=== PATIENT | female | born 1995 | race Caucasian/White ===

== ENCOUNTER → 2022-09-30 | Outpatient (CLI) | payer MEDICAID, SELFPAY ==
[2022-09-30 12:36] LABS: Erythrocyte Sedimentation Rate 22 mm/hr (0-30)
[2022-09-30 12:37] LABS: Absolute Lymphocyte Count 2.36 X10^3/uL (0.83-4.51); Absolute Neutrophil Count 2.4 X10^3/uL (2.0-7.7); Basophil# 0.01 X10^3/uL; Basophil% 0.2 % (0-1); Eosinophil# 0.15 X10^3/uL; Eosinophils% 2.8 % (0-5); Hematocrit 40.1 % (37-47); Hemoglobin 12.9 g/dL (12.0-15.0); Lymphocyte # 2.36 X10^3/ul (0.83-4.51); Lymphocyte % 43.5 % (19-41); Mean Corp Hgb Conc 32.2 g/dL (32-36); Mean Corpuscular Hgb 28.2 pg (27.0-32.0); Mean Corpuscular Volume 87.7 fL (81-99); Mean Platelet Vol. 9.1 fl (6.2-12.0); Monocyte# 0.46 X10^3/uL; Monocyte% 8.5 % (0-10); NRBC Flagged by Analyzer 0 % (0-5); Neutrophil # 2.43 X10^3/uL (2.7-7.7); Neutrophil % 44.6 % (47-70); Platelet Count 279 K/mm3 (150-450); RBC Distribution Width CV 14.9 % (11.6-14.6); RBC Distribution Width SD 47.8 fl (35.1-43.9); Red Blood Count 4.57 M/mm3 (4.2-5.4); White Blood Count 5.4 K/mm3 (4.4-11.0)
[2022-09-30 13:20] LABS: ALB/GLOB Ratio 0.9 RATIO (0.9-2.4); AST(SGOT) 14 U/L (15-37); Alanine Aminotransfer ALT/SGPT 20 U/L (13-56); Albumin, Serum 3.6 g/dL (3.2-5.0); Alkaline Phosphatase 80 U/L (45-117); Anion Gap 7 (5-15); BUN 11 mg/dL (7-18); BUN/Creat Ratio 13.2 RATIO (10-20); Chloride 109 mmol/L (98-107); Creatinine, Serum 0.83 mg/dL (0.55-1.02); EST Glomerular Filtration Rate 88 mL/min (>60); Est Glom Filt Rate - Afr Amer 106 mL/min (>60); Glucose 86 mg/dL (74-106); Lipase 35 U/L (13-75); Potassium 3.6 mmol/L (3.5-5.1); Protein, Total 7.6 g/dL (6.4-8.2); Sodium Level 139 mmol/L (136-145)
[2022-10-03 15:07] LABS: Endomysial Antibody IgA Negative (Negative); Immunoglobulin A 230 mg/dL (87-352); t-Transglutaminase IgA <2 U/mL (0-3)
[2022-10-03 16:09] LABS: Anti-Centromere B Ab <0.2 AI (0.0-0.9); Anti-Chromatin <0.2 AI (0.0-0.9); Anti-Jo <0.2 AI (0.0-0.9); Anti-Scleroderma-70 AB <0.2 AI (0.0-0.9); Anti-dsDNA Ab <1 IU/mL (0-9); RNP Ab <0.2 AI (0.0-0.9); SJOGREN'S Anti-SS-A test < 0.2 AI (0.0-0.9); SJOGREN'S Anti-SS-B test < 0.2 AI (0.0-0.9); Smith Ab <0.2 AI (0.0-0.9)
[2022-10-06 19:07] LABS: Immunoglobulin A 219 mg/dL (87-352); Immunoglobulin E 241 IU/mL (6-495); Immunoglobulin G 1129 mg/dL (586-1602); Immunoglobulin M 153 mg/dL (26-217)
== END | disposition home or self-care (01) ==
PROVIDERS: Referring Provider Nurse Practitioner Adult Health; Visit Provider Nurse Practitioner Adult Health
DX: R19.7 Diarrhea, unspecified (principal); R11.10 Vomiting, unspecified; R10.9 Unspecified abdominal pain
CPT/HCPCS: 36415; 80053; 82784; 82785; 83516; 83690; 85025; 85652; 86140; 86225; 86235; 86255

== ENCOUNTER → 2022-10-14 | Outpatient (CLI) | payer MEDICAID, SELFPAY ==
--- NOTE | 2022-10-14 07:23 | US_ITS ---
STUDY: ABDOMINAL ULTRASOUND - RIGHT UPPER QUADRANT REASON FOR VISIT: Female, 27 years old episodic vomit/diarrhea/abd pain -- RUQ TECHNIQUE: Ultrasound evaluation of the right upper quadrant was performed with real-time and static hernandez-scale imaging. TECHNICAL QUALITY: Adequate. COMPARISON: None. FINDINGS: Liver: The liver is enlarged and measures 18.8 cm. There is increased echogenicity consistent with fatty infiltration. The bile ducts are within normal limits. There is hepatic color flow. The direction of portal flow is hepatopetal. There is no demonstrated mass lesion. Gallbladder: Normal distended gallbladder. The gallbladder wall measures 3.0 mm. There is a negative sonographic Mcallister''s sign. There is no pericholecystic fluid. There are no gallstones. Common Bile Duct (C.B.D.): The common bile duct measures 2.0 mm. Pancreas: Normal size of the head, body and tail of the pancreas. There is normal echogenicity of the pancreas. There is no demonstrated pancreatic mass or cyst. Right Kidney: Normal size of the right kidney. The right kidney measures 10.6 cm x 4 cm x 4.7 cm. Normal renal cortex. The right cortex measures 1.3 cm. There is no demonstrated renal mass or cyst. There is no right hydronephrosis. US/Abdomen Limited IMPRESSION: Hepatomegaly and fatty infiltration of the liver. Electronically Signed: Zurdo Carney MD at 15:19 EDT ,
== END | disposition home or self-care (01) ==
LOC: US 07:19
PROVIDERS: Referring Provider Nurse Practitioner Adult Health; Visit Provider Nurse Practitioner Adult Health
DX: R10.9 Unspecified abdominal pain (principal); R11.10 Vomiting, unspecified; R19.7 Diarrhea, unspecified
CPT/HCPCS: 76705

== ENCOUNTER → 2022-11-04 | Outpatient (CLI) | payer MEDICAID, SELFPAY ==
[2022-11-04 17:20] LABS: Prothrombin Time (Protime)PT. 13.3 SECONDS (11.7-14.9)
[2022-11-04 17:41] LABS: Hemoglobin A1c 4.9 % (3.8-5.6)
[2022-11-04 17:44] LABS: Ferritin 6 ng/mL (8-252); LDH 178 U/L (84-246)
[2022-11-04 18:15] LABS: HIV - WCH Non-Reactive (Nonreactive)
[2022-11-07 14:08] LABS: Anti-Mitochondrial AB 35.9 Units (0.0-20.0)
[2022-11-08 17:07] LABS: Calprotectin, Stool 32 ug/g (0-120)
[2022-11-10 03:07] LABS: AFP, Tumor Marker < 1.8 ng/mL (0.0-4.7); Angiotensin Convert Enzyme 46 U/L (14-82); Anti-Smooth Muscle ABS 5 Units (0-19); Ceruloplasmin 28.3 mg/dL (19.0-39.0); Copper, Serum or Plasma 120 ug/dL (80-158); Cytoplasmic Ab (C-ANCA) <1:20 titer (Neg:<1:20); HEPATITIS B SURFACE AG Negative (Negative); Haptoglobin 127 mg/dL (33-278); Hep C Antibodies Non Reactive (Non Reactive); Hepatitis A IgM Antibody Negative (Negative); Hepatitis B Core AB IgM Negative (Negative); Perinuclear Ab (P-ANCA) <1:20 titer (Neg:<1:20)
== END | disposition home or self-care (01) ==
LOC: LABSPEC 15:13
PROVIDERS: Nurse Practitioner Adult Health; Referring Provider Internal Medicine Gastroenterology; Visit Provider Internal Medicine Gastroenterology
DX: K76.0 Fatty (change of) liver, not elsewhere classified (principal); R19.7 Diarrhea, unspecified; R11.10 Vomiting, unspecified; R10.9 Unspecified abdominal pain; K58.9 Irritable bowel syndrome, unspecified
CPT/HCPCS: 36415; 80074; 82105; 82140; 82164; 82390; 82525; 82728; 83010; 83036; 83516; 83615; 83630; 83993; 85610; 86256; 86703

== ENCOUNTER → 2022-11-11 | Outpatient (CLI) | payer MEDICAID, SELFPAY ==
--- NOTE | 2022-11-11 07:29 | US_ITS ---
STUDY: ABDOMINAL ULTRASOUND - ELASTOGRAPHY REASON FOR VISIT: Female, 27 years old. Fatty infiltration of the liver. TECHNIQUE: Liver stiffness measurements were obtained on a [employer] RS 85 ultrasound machine using a CA 1-7 probe following the SRU guidelines. 3 measurements were obtained using a 2-D-SWE method. TheIQR/M was 17% suggesting a quality data set. TECHNICAL QUALITY: Adequate. COMPARISON: Comparison is made with prior study dated October 14, 2022. FINDINGS: Liver: Fatty infiltration of the liver. Median liver stiffness measured 6.4 kPa. Abdomen: There is no demonstrated mass lesion. US/Elastography Parenchyma/Organ IMPRESSION: Liver stiffness measures 6.4 kPa compatible with F2-F3 (Mild to moderate liver fibrosis) Metavir score. Electronically Signed: Zurdo Carney MD at 9:20 EDT ,
== END | disposition home or self-care (01) ==
LOC: US 07:26
PROVIDERS: Referring Provider Internal Medicine Gastroenterology; Visit Provider Internal Medicine Gastroenterology
DX: K76.0 Fatty (change of) liver, not elsewhere classified (principal)
CPT/HCPCS: 76981

== ENCOUNTER → 2022-12-02 | Outpatient (CLI) | payer MEDICAID, SELFPAY ==
[2022-12-02] VITALS (7 sets, daily range): BP systolic 101–134; BP diastolic 49–74; PULSE 47–69; RESP 17–24; TEMP 36.9; O2SAT 96–100; BMI 38.2
--- NOTE | 2022-12-02 | LIVB_PTH ---
PATIENT: HERRERA RANDALL LOC: CT U#:[id number] AGE/SX: 27/F ROOM: RE12/02/[address]: Dr. Pepe Juares DO : 1995 BED: DIS: 12/02/2022 SPEC #: [id number] RECD: 12/02/22 09:49 STATUS: MARY REGabe #: [id number] GABRIEL: 12/02/22 00:[address]: Pepe Juares DEPT: SURGICAL PATHOLOGY RECD BY: Kristin Pérez ENTERED: 12/02/22 11:00 SP TYPE: LIVER BX OTHR DR: Dr. Zurdo Carney MD Tissues: Liver, NOS Procedures: PAS with Diastase (control) Trichrome (control) Special Stain Group II PAS Stain (control) Surgery Specimen Level V Retic (control) Iron Stain (control) HEADER OPERATION: Liver biopsy PRE-OP DIAGNOSIS: Fatty liver TISSUE SUBMITTED: Right lobe liver 18-gauge x3 MICROSCOPIC DIAGNOSIS Right lobe liver, core biopsy: Liver parenchymal tissue with focal minimal macrovesicular steatosis and focal minimal portal chronic inflammation. See microscopic description and comment. SJ:barb 12/05/2022 COMMENT Correlation with clinical, laboratory and radiologic findings and appropriate follow up are necessary. Case has been reviewed in consultation with Dr. Lama who concurs with the above diagnosis. IDC:CHRISTINA MICROSCOPIC DESCRIPTION Slides are reviewed. The specimen shows liver parenchymal tissue with preserved lobular architecture. Hepatocytes are essentially unremarkable. Significant lobular inflammation is not seen. Portal area shows minimal chronic inflammation. Significant bile duct destruction or inflammation is not seen. Interface inflammation is also not present. Iron stain shows absent iron. Reticulin stain shows preserved lobular architecture. Trichrome stain does not show significant increased portal or periportal fibrosis. PAS stain with and without diastase does not reveal any abnormal accumulation of protein. All stains are performed with appropriate matched controls. GROSS DESCRIPTION Received in fixative is one container labeled with the patient's name and designated liver biopsy. The specimen consists of multiple elongated fragments of flower soft tissue that in aggregate measure 2.0 x 0.5 x 0.1 cm. The specimen is totally submitted in one cassette. / HAROON:barb 12/04/2022 TC:3 CPT: 48228, 05980 x5
[2022-12-02 07:50] LABS: Platelet Count 240 K/mm3 (150-450)
--- NOTE | 2022-12-02 07:53 | CT_ITS ---
PROCEDURE: CT DIRECTED CORE LIVER BIOPSY INDICATION: Female, 27 years old. Fatty liver PHYSICIAN: Dr. Floresita Sanchez CONSENT: Written informed consent was obtained having explained the risks, benefits and alternatives in detail with the patient who accepted the risks and agreed to proceed. Laboratory review and clinical assessment was performed. CONSCIOUS SEDATION PROTOCOL: The Drugs used were: 3 mg Versed, IV., and 75 mcg Fentanyl, IV. The sedation time was: 20 minutes. Conscious sedation was started at 9:05 AM and terminated on 9:25 AM. The conscious sedation protocol was independently monitored. RADIATION DOSAGE (If Supplied By Facility): CTDIvol = ( 19.5 ) mGy, DLP = ( 426.97 ) mGy Individualized dose optimization techniques were used for this CT. TECHNIQUE: Using CT image guidance with image documentation, a suitable location in the right lobe of the liver was identified. Using an anterior approach, puncture of the liver was uneventful with an 18-gauge core needle system. 3, 18-gauge core samples were obtained, and submitted in formalin to the pathologist for further assessment. Followup CT scan revealed no distinct sequelae. CT/Biopsy/Inj or Needle Placement IMPRESSION: 1. CT directed core needle biopsy of the liver, using CT image guidance with image documentation as described. 2. Conscious Sedation protocol utilized with independent monitoring. Electronically Signed: Zurdo Carney MD at 10:48 EDT ,
[2022-12-02 08:02] LABS: International Normalized Ratio 1.1; Partial Thromboplast Time 29.8 Seconds (24.1-36.2); Prothrombin Time (Protime)PT. 14.1 SECONDS (11.7-14.9)
[2022-12-02] MEDS: Midazolam 2 MG/2 ML Syringe IV ×3 (09:05→09:45)
[2022-12-02] MEDS: fentaNYL 100 MCG/2 ML Ampul IV ×3 (09:05→09:45)
[2022-12-02] MEDS: Lidocaine 2% (20 ml mdv) 20 ML Vial INFILT (09:15)
== END | disposition home or self-care (01) ==
PROVIDERS: Referring Provider Internal Medicine Gastroenterology; Visit Provider Internal Medicine Gastroenterology
DX: K76.0 Fatty (change of) liver, not elsewhere classified (principal)
CPT/HCPCS: 47000; 36415; 77012; 85049; 85610; 85730; 88307; 88313; 99156; J7050; A4216

== ENCOUNTER 2023-01-20 05:31 | Day surgery (SDC) | payer MEDICAID, SELFPAY ==
[2023-01-20] VITALS (7 sets, daily range): BP systolic 87–107; BP diastolic 48–81; PULSE 63–77; RESP 16–18; TEMP 36.2–36.6; O2SAT 98–100; BMI 37.4
[2023-01-20] MEDS: Lactated Ringers 1,000 ML 15 ML IV (06:07)
--- NOTE | 2023-01-20 06:30 | COLBX_PTH ---
PATIENT: HERRERA RANDALL LOC: EN U#:[id number] AGE/SX: 27/F ROOM: RE01/20/[address]: Dr. Pepe Juares DO : 1995 BED: DIS: 01/20/2023 SPEC #: [id number] RECD: 01/20/23 09:02 STATUS: MARY BEST #: [id number] GABRIEL: 01/20/23 06:[address]: Pepe Juares DEPT: SURGICAL PATHOLOGY RECD BY: Paul Villalobos Tissues: A - Duodenum, NOS B - Gastric mucous membrane C - Esophagus, NOS D - Ileum, NOS E - Cecum, NOS F - COLON BIOPSY G - Rectum, NOS Procedures: Special Stain Group II Surgery Specimen Level IV Alcian Blue/PAS (control) HEADER OPERATION: Colonoscopy with biopsies, EGD (MAC) with biopsies PRE-OP DIAGNOSIS: Abdominal pain, vomiting, diarrhea, acid reflux TISSUE SUBMITTED: A - Duodenum biopsy, B - Gastric body biopsy, C - Distal esophagus biopsy, D - Terminal ileum biopsy, E - Cecum biopsy, F - Random colon biopsies, G - Rectum biopsy MICROSCOPIC DIAGNOSIS A. Duodenum, biopsy: No pathologic change. B. Gastric body, biopsy: Chronic gastritis. See comment. C. Distal esophagus, biopsy: Gastroesophageal junction with mild chronic inflammation. No evidence of goblet cell metaplasia. See comment. D. Terminal ileum, biopsy: No pathologic change. E. Cecum, biopsy: No pathologic change. F. Colon, random biopsy: No pathologic change. G. Rectum, biopsy: No pathologic change. AM:barb 01/23/2023 COMMENT B. The results of immunohistochemistry for Helicobacter pylori will be reported separately ([id number]). C. Alcian blue/PAS stain with matched control supports the above diagnosis. MICROSCOPIC DESCRIPTION Slides are reviewed. GROSS DESCRIPTION A - Received in fixative is one container labeled with the patient's name and designated duodenum biopsy. The specimen consists of multiple irregular fragments of light flower soft tissue that in aggregate measure 0.6 x 0.5 x 0.1 cm. The specimen is totally submitted in one cassette. B - Received in fixative is one container labeled with the patient's name and designated gastric body biopsy. The specimen consists of multiple irregular fragments of light flower soft tissue that in aggregate measure 1.5 x 0.3 x 0.1 cm. The specimen is totally submitted in one cassette. C - Received in fixative is one container labeled with the patient's name and designated distal esophagus biopsy. The specimen consists of multiple irregular fragments of light flower soft tissue that in aggregate measure 0.6 x 0.3 x 0.1 cm. The specimen is totally submitted in one cassette. D - Received in fixative is one container labeled with the patient's name and designated terminal ileum biopsy. The specimen consists of multiple irregular fragments of light flower soft tissue that in aggregate measure 1.0 x 0.3 x 0.1 cm. The specimen is totally submitted in one cassette. E - Received in fixative is one container labeled with the patient's name and designated cecum biopsy. The specimen consists of multiple irregular fragments of light flower soft tissue that in aggregate measure 1.0 x 0.2 x 0.1 cm. The specimen is totally submitted in one cassette. F - Received in fixative is one container labeled with the patient's name and designated random colon biopsy. The specimen consists of multiple irregular fragments of light flower soft tissue that in aggregate measure 2.5 x 0.3 x 0.1 cm. The specimen is totally submitted in one cassette. G - Received in fixative is one container labeled with the patient's name and designated rectum biopsy. The specimen consists of one irregular fragment of light flower soft tissue that measures 0.4 x 0.3 x 0.1 cm. The specimen is totally submitted in one cassette. / SJ:rg 01/20/2023 TC:3 CPT: 20701 x7, 49438
--- NOTE | 2023-01-20 06:30 | IMM_PTH ---
PATIENT: HERRERA RANDALL LOC: EN U#:[id number] AGE/SX: 27/F ROOM: RE01/20/[address]: Dr. Pepe Juares DO : 1995 BED: DIS: 01/20/2023 SPEC #: [id number] RECD: 01/20/23 14:12 STATUS: MARY REGabe #: [id number] GABRIEL: 01/20/23 06:[address]: Pepe Juares DEPT: IMMUNOHISTOCHEMISTRY RECD BY: Josefina Salmon Tissues: B - Stomach, NOS Procedures: H Pylori (initial) PHYSICIAN & INSTITUTION [place] [id number] SPECIMEN INFORMATION: Tissue Source: B - Gastric body Clinical Info: Abdominal pain, vomiting, diarrhea, acid reflux Specimen Number: [id number] CPT code: 24504 METHODOLOGY: Deparaffinized sections of prefer/formalin-fixed tissue or PAP/DQ stained slides are incubated with monoclonal/polyclonal antibodies/oligonucleotide probes. Localization is made via biotin free immunoperoxidase method. Appropriate controls are performed and reacted as expected. Results on target cell population are indicated in the following table: RESULTS: ANTIBODY / CLONE RESULT Block B H Pylori (polyclonal) negative These tests were developed and their performance characteristics determined by [facility]. They may not have been cleared or approved by the U.S. Food and Drug Administration. The FDA has determined that such clearance or approval is not necessary. The above immunohistochemical/dualISH markers are ordered and reviewed by the Pathologist. INTERPRETATION: B. Gastric body, biopsy: Negative for Helicobacter pylori organisms. AM:barb 01/23/2023
--- NOTE | 2023-01-20 06:34 | PCM.HP.BLA ---
History and Physical Date of Admission: 01/20/23 27 F who presents to the office today to establish with Gastroenterology for bowel concerns. She reports a lifelong hx of GI issues. Tends to have diarrhea when stressed. Can alternate between diarrhea and constipation. Lately having daily BM which is unusual for her--typically would have BM every 3 days and stool is hard and she has to strain then, or would have diarrhea. She was diagnosed with celiac disease; she was gluten-free for 1-2 yrs, then resumed gluten several yrs ago, didn't note any change w/ or w/o gluten. Cousin has Crohn's. Grandmother from pancreatic cancer. Has throat pain when she drinks pop. No difficulty swallowing. Gets indigestion, acid refluxes especially when she lies down even if hours after last meal. No nausea. Occas vomiting when she gets attack of urgent diarrhea, feels hot and chilled--these occur every 2-3 mos. Seems random, not postprandial. Starts with pain which can be RLQ or across middle of abd. Has abd discomfort and poor appetite afterwards. Increase appetite recently with addition of Abilify. Has gained weight, 10 lbs in last month. No early satiety. No melena or hematochezia or hematemesis. Had esophageal dilation for dysphagia, approx 5-6 yrs ago, that helped. That GI doctor diagnosed her with celiac disease. That EGD was done at [facility]. Dr Edson Mitchell. US and CT done at ED, more than 2 yrs ago. ROS Const Constitutional: Positive for fatigue, fever(s), headache(s) and weight change; No frequent falls or weakness ENT ENT: Positive for headache(s) and difficulty swallowing Cardio Cardiology: No leg pain with exertion Gastro GI: Positive for bloating, change in bowel habits, constipation, diarrhea, heartburn and difficulty swallowing; No abdominal pain, excessive flatus, Vomiting blood/hematemesis, Blood in stool, nausea/dyspepsia or vomiting Musc Musculoskeletal: Positive for joint pain, joint swelling and Arthritis; No back pain, muscle cramps, muscle weakness, numbness, stiffness, tingling, sciatica, restless legs, leg pain at night or leg pain with exertion Skin Skin: Positive for dry skin; No lesions, itchy eyes or rash Neuro Neurology: Positive for headache(s); No behavioral changes, unsteady gait/balance, weakness, frequent falls, numbness, tingling, restless legs, tremor(s), Increased tone in limbs, paralysis or seizures Psych Psychiatric: Positive for anxiety, No behavioral changes, Positive for depression, No paranoia, No Compulsive Behavior, No hyperactivity, No inattentiveness, No obsessions/compulsions, No Temper Tantrums and No suicidal ideation Endo Endocrine: Positive for fatigue and weight change Aller/Imm Allergy/Immunologic: No itchy eyes Chris/Lymp Hematologic/Lymphatic: Positive for easy bruising; No easy bleeding Exam Const General: cooperative and comfortable Nutritional Appearance: obese Orientation: alert, awake and oriented x3 Eyes Sclera: sclerae normal Resp Effort & Inspection: normal respiratory effort GI Inspection: normal to inspection Palpation: soft, no hepatosplenomegaly, no masses and tender in the epigastrum and in the RLQ Quality Reporting Tobacco Screening ([facility] 138) Smoking Status: Former smoker Assessment and Plan Assessment and Plan (1) Abdominal pain: Status: Chronic Plan: 27 yr old female with episodes of abd pain (typically right sided), vomiting and diarrhea, no postprandial. Also has alternating diarrhea and constipation, as well as acid reflux. Will get RUQ US, may need CT after that. Will schedule EGD and colonoscopy. Will get blood and stool tests to eval for autoimmune, celiac, IBD. Prior diagnosis of celiac, but no change in symptoms when she was gluten-free. Will call her with results. (2) Vomiting: Status: Chronic Plan: see above (3) Diarrhea: Status: Chronic Plan: see above (4) Acid reflux: Status: Chronic Plan: see above Orders: Orders Abdomen Limited Today R10.9 - Unspecified abdominal pain, R11.10 - Vomiting, unspecified, R19.7 - Diarrhea, unspecified Miscellaneous Lab Procedure Today R10.9 - Unspecified abdominal pain, R11.10 - Vomiting, unspecified, R19.7 - Diarrhea, unspecified Comprehensive Metabolic Profil Today R10.9 - Unspecified abdominal pain, R11.10 - Vomiting, unspecified, R19.7 - Diarrhea, unspecified CRP Today R10.9 - Unspecified abdominal pain, R11.10 - Vomiting, unspecified, R19.7 - Diarrhea, unspecified Lipase Today R10.9 - Unspecified abdominal pain, R11.10 - Vomiting, unspecified, R19.7 - Diarrhea, unspecified CBC W/Diff, Automated Today R10.9 - Unspecified abdominal pain, R11.10 - Vomiting, unspecified, R19.7 - Diarrhea, unspecified Erythrocyte Sed Rate Today R10.9 - Unspecified abdominal pain, R11.10 - Vomiting, unspecified, R19.7 - Diarrhea, unspecified SAMIR Comprehensive Panel Today R10.9 - Unspecified abdominal pain, R11.10 - Vomiting, unspecified, R19.7 - Diarrhea, unspecified Calprotectin, Stool Today R10.9 - Unspecified abdominal pain, R11.10 - Vomiting, unspecified, R19.7 - Diarrhea, unspecified Stool Lactoferrin/WBC Today K58.9 - Irritable bowel syndrome without diarrhea, R10.9 - Unspecified abdominal pain, R11.10 - Vomiting, unspecified, R19.7 - Diarrhea, unspecified Celiac Disease Profile Today R10.9 - Unspecified abdominal pain, R11.10 - Vomiting, unspecified, R19.7 - Diarrhea, unspecified Immunoglobulins G/A/M/E Today R10.9 - Unspecified abdominal pain, R11.10 - Vomiting, unspecified, R19.7 - Diarrhea, unspecified Medications: Discontinued omeprazole Discontinued Reason: Pt no longer taking 20 mg PO BERNARDA I have examined the patient and the H&P has been reviewed. There are no clinical changes since date of exam.
--- NOTE | 2023-01-20 07:14 | OP.CCLET_ITS ---
01/20/2023 Lady Loyola Re : Upper GI endoscopy procedure for Sloane Loyola This procedure was performed on Friday, January 20, 2023. My impressions and recommendations are as follows: Impressions : - Z-line irregular, 38 cm from the incisors. Biopsied. - Erythematous mucosa in the gastric body. Biopsied. - Erythematous duodenopathy. Biopsied. Recommendations : - Discharge patient to home. - Resume previous diet. - Continue present medications. - Await pathology results. My findings are described in the full procedure note, which is enclosed. If I can be of further assistance, please feel free to contact me at . Sincerely, Pepe Juares, 01/20/2023 7:13:04 AM This report has been signed electronically.
--- NOTE | 2023-01-20 07:14 | OP.EGD_ITS ---
Patient Name: Sloane Camacho Procedure Date: 01/20/2023 6:22 AM Date of : 1995 Age: 27 Procedure: Upper GI endoscopy Indications: Epigastric abdominal pain, Suspected reflux esophagitis Providers: Pepe Juares DO Medicines: Monitored Anesthesia Care Patient Profile: This is a 27 year old female. Refer to note in patient chart for documentation of history and physical. Patient has symptoms of chronic abdominal cramping, chronic epigastric abdominal pain and chronic dyspepsia. Complications: No immediate complications. Procedure: Pre-Anesthesia Assessment: - Prior to the procedure, a History and Physical was performed, and patient medications and allergies were reviewed. The patient is competent. The risks and benefits of the procedure and the sedation options and risks were discussed with the patient. All questions were answered and informed consent was obtained. Patient identification and proposed procedure were verified by the physician. Mental Status Examination: normal. Respiratory Examination: clear to auscultation. Prophylactic Antibiotics: The patient does not require prophylactic antibiotics. Prior Anticoagulants: The patient has taken no anticoagulant or antiplatelet agents. ASA Grade Assessment: II - A patient with mild systemic disease. After reviewing the risks and benefits, the patient was deemed in satisfactory condition to undergo the procedure. The anesthesia plan was to use monitored anesthesia care (MAC). Immediately prior to administration of medications, the patient was re-assessed for adequacy to receive sedatives. The heart rate, respiratory rate, oxygen saturations, blood pressure, adequacy of pulmonary ventilation, and response to care were monitored throughout the procedure. The physical status of the patient was re-assessed after the procedure. After obtaining informed consent, the endoscope was passed under direct vision. Throughout the procedure, the patient's blood pressure, pulse, and oxygen saturations were monitored continuously. The colonoscope was introduced through the mouth, and advanced to the second part of duodenum. The upper GI endoscopy was accomplished without difficulty. The patient tolerated the procedure well. Scope In: 6:42:37 AM Scope Out: 6:48:17 AM Total Procedure Duration Time 0 hours 5 minutes 40 seconds Findings: The Z-line was irregular and was found 38 cm from the incisors. Biopsies were taken with a cold forceps for histology. Verification of patient identification for the specimen was done. Estimated blood loss was minimal. Patchy mildly erythematous mucosa without bleeding was found in the gastric body. Biopsies were taken with a cold forceps for histology. Verification of patient identification for the specimen was done. Estimated blood loss was minimal. Patchy mildly erythematous mucosa without active bleeding and with no stigmata of bleeding was found in the duodenal bulb and in the first portion of the duodenum. Biopsies were taken with a cold forceps for histology. Verification of patient identification for the specimen was done. Estimated blood loss was minimal. Impression: - Z-line irregular, 38 cm from the incisors. Biopsied. - Erythematous mucosa in the gastric body. Biopsied. - Erythematous duodenopathy. Biopsied. Recommendation: - Discharge patient to home. - Resume previous diet. - Continue present medications. - Await pathology results. Procedure Code(s): --- Professional --- 15902, Esophagogastroduodenoscopy, flexible, transoral; with biopsy, single or multiple CPT copyright 2021 [employer]. All rights reserved. The codes documented in this report are preliminary and upon algology teacher review may be revised to meet current compliance requirements. Pepe Juares DO 01/20/2023 7:13:04 AM This report has been signed electronically. Number of Addenda: 0 Note Initiated On: 01/20/2023 6:22 AM
--- NOTE | 2023-01-20 07:15 | OP.COLON_ITS ---
Patient Name: Sloane Camacho Procedure Date: 01/20/2023 6:48 AM Date of : 1995 Age: 27 Procedure: Colonoscopy Indications: Generalized abdominal pain, Clinically significant diarrhea of unexplained origin Providers: Pepe Juares DO Medicines: Monitored Anesthesia Care Patient Profile: This is a 27 year old female. Refer to note in patient chart for documentation of history and physical. Patient has symptoms of chronic abdominal cramping, chronic epigastric abdominal pain and chronic dyspepsia. Last Colonoscopy: none. The patient's first colonoscopy is today. Complications: No immediate complications. Procedure: Pre-Anesthesia Assessment: - Prior to the procedure, a History and Physical was performed, and patient medications and allergies were reviewed. The patient is competent. The risks and benefits of the procedure and the sedation options and risks were discussed with the patient. All questions were answered and informed consent was obtained. Patient identification and proposed procedure were verified by the physician. Mental Status Examination: normal. Respiratory Examination: clear to auscultation. Prophylactic Antibiotics: The patient does not require prophylactic antibiotics. Prior Anticoagulants: The patient has taken no anticoagulant or antiplatelet agents. ASA Grade Assessment: II - A patient with mild systemic disease. After reviewing the risks and benefits, the patient was deemed in satisfactory condition to undergo the procedure. The anesthesia plan was to use monitored anesthesia care (MAC). Immediately prior to administration of medications, the patient was re-assessed for adequacy to receive sedatives. The heart rate, respiratory rate, oxygen saturations, blood pressure, adequacy of pulmonary ventilation, and response to care were monitored throughout the procedure. The physical status of the patient was re-assessed after the procedure. After I obtained informed consent, the scope was passed under direct vision. Throughout the procedure, the patient's blood pressure, pulse, and oxygen saturations were monitored continuously. The colonoscope was introduced through the anus and advanced to the terminal ileum. The colonoscopy was performed without difficulty. The patient tolerated the procedure well. The quality of the bowel preparation was adequate. The terminal ileum, ileocecal valve, appendiceal orifice, and rectum were photographed. Scope In: 6:50:36 AM Scope Withdrawal Time 0 hours 10 minutes 40 seconds Scope Out: 7:05:18 AM Total Procedure Duration Time 0 hours 14 minutes 42 seconds Findings: The perianal and digital rectal examinations were normal. The colon (entire examined portion) appeared normal. Biopsies for histology were taken with a cold forceps from the cecum, ascending colon, right colon, left colon, transverse colon, right transverse colon, left transverse colon, descending colon, sigmoid colon and rectum for evaluation of microscopic colitis. The terminal ileum appeared normal. Biopsies were taken with a cold forceps for histology. Verification of patient identification for the specimen was done. Estimated blood loss was minimal. Impression: - The entire examined colon is normal. Biopsied. - The examined portion of the ileum was normal. Biopsied. Recommendation: - Discharge patient to home. - Resume previous diet. - Continue present medications. - Await pathology results. - Repeat colonoscopy for surveillance based on pathology results. Procedure Code(s): --- Professional --- 92314, Colonoscopy, flexible; with biopsy, single or multiple CPT copyright 2021 [employer]. All rights reserved. The codes documented in this report are preliminary and upon building construction teacher review may be revised to meet current compliance requirements. Pepe Juares DO 01/20/2023 7:15:15 AM This report has been signed electronically. Number of Addenda: 0 Note Initiated On: 01/20/2023 6:48 AM
--- NOTE | 2023-01-20 07:16 | OP.CCLET_ITS ---
01/20/2023 Milla Re : Colonoscopy procedure for Sloane Loyola This procedure was performed on Friday, January 20, 2023. My impressions and recommendations are as follows: Impressions : - The entire examined colon is normal. Biopsied. - The examined portion of the ileum was normal. Biopsied. Recommendations : - Discharge patient to home. - Resume previous diet. - Continue present medications. - Await pathology results. - Repeat colonoscopy for surveillance based on pathology results. My findings are described in the full procedure note, which is enclosed. If I can be of further assistance, please feel free to contact me at . Sincerely, Pepe Juares, 01/20/2023 7:15:15 AM This report has been signed electronically.
== END 2023-01-20 08:07 | disposition home or self-care (01) ==
LOC: EN 05:32 → AC 05:33
PROVIDERS: Referring Provider Internal Medicine Gastroenterology; Visit Provider Internal Medicine Gastroenterology
PROC: 0DJD8ZZ Inspection of Lower Intestinal Tract, Via Natural or Artificial Opening Endoscopic (ICD-10-PCS; CPT 45378; principal; 2023-01-20 06:25)
DX: R10.13 Epigastric pain (principal); R19.7 Diarrhea, unspecified; Z87.891 Personal history of nicotine dependence; R11.10 Vomiting, unspecified
CPT/HCPCS: 45380; 43239; 88305; 88313; 88342; J7120; J2405